=== PATIENT | female | born 1985 | race Two or more races ===

== ENCOUNTER 2018-07-15 21:30 | Inpatient (IN) | payer OTHER ==
[~2018-07-15] VITALS: Ht 157.5 cm; Wt 65.3 kg
[~2018-07-15 21:30] MED LIST: FOLIC ACID0.4 MG PO
[2018-07-15] MEDS ORDERED: PRENATAL TABLE1 EAC1 PO (22:54)
== END 2018-07-18 12:57 | disposition home or self-care (01) | DRG 786 ==
LOC: OBS/DEL 21:30 → SURH 21:57 → LDR 21:57 → O/R 07-16 09:33 → SURH 07-16 10:29
PROVIDERS: Obstetrics & Gynecology; ADMIT Obstetrics & Gynecology
PROC: 4A1HXCZ Monitoring of Products of Conception, Cardiac Rate, External Approach (ICD-10-PCS; 2018-07-15)
PROC: BY4FZZZ Ultrasonography of Third Trimester, Single Fetus (ICD-10-PCS; 2018-07-15)
PROC: 10D00Z1 Extraction of Products of Conception, Low, Open Approach (ICD-10-PCS; principal; 2018-07-16 08:00)
DX: O36.4XX0 Maternal care for intrauterine death, not applicable or unspecified (principal); O60.14X0 Preterm labor third trimester with preterm delivery third trimester, not applicable or unspecified; O34.211 Maternal care for low transverse scar from previous cesarean delivery; O75.82 Onset (spontaneous) of labor after 37 completed weeks of gestation but before 39 completed weeks gestation, with delivery by (planned) cesarean section; Z3A.31 31 weeks gestation of pregnancy; Z37.1 Single stillbirth

== ENCOUNTER 2020-05-23 04:36 | Inpatient (IN) | payer OTHER ==
[~2020-05-23] VITALS: Ht 157.5 cm; Wt 2.3 kg
[~2020-05-23 04:36] MED LIST changes: +PRENATAL TABLE1 EAC1 PO
[2020-05-23] MEDS ORDERED: PRENATAL CAPLE1 EAC1 PO (06:33)
[2020-05-23] MEDS ORDERED: PLAQUENIL PO (07:06)
[2020-05-23] MEDS ORDERED: HYDROXYCHLOROQ200 MG (10:09)
== END 2020-05-25 13:39 | DRG 785 ==
LOC: SURG-SUITE 04:36 → LDR 04:36 → O/R 08:37 → OB/GYN 11:25 → SURG-SUITE 12:15
PROVIDERS: ADMIT Specialist; ATTEND Specialist
PROC: 0UB70ZZ Excision of Bilateral Fallopian Tubes, Open Approach (ICD-10-PCS; 2020-05-23)
PROC: 4A1HXFZ Monitoring of Products of Conception, Cardiac Rhythm, External Approach (ICD-10-PCS; 2020-05-23)
PROC: 10D00Z1 Extraction of Products of Conception, Low, Open Approach (ICD-10-PCS; principal; 2020-05-23 07:00)
DX: O34.211 Maternal care for low transverse scar from previous cesarean delivery (principal); O24.429 Gestational diabetes mellitus in childbirth, unspecified control; Z30.2 Encounter for sterilization; Z3A.37 37 weeks gestation of pregnancy; Z37.0 Single live birth